=== PATIENT | female | born 1970 | race Native Hawaiian/Other Pacific Islander ===

== ENCOUNTER → 2017-08-02 | Outpatient (CLI) | payer OTHER | LOC: FIMAGING 10:35 | PROVIDERS: ATTEND Podiatrist | DX: M72.2 Plantar fascial fibromatosis (principal) ==

== ENCOUNTER 2018-05-01 12:36 | Inpatient (IN) | payer OTHER ==
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
[2018-05-01 15:42] LABS: PLATELET COUNT 409 10^3/uL (150-400)
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
--- NOTE | 2018-05-01 21:51 | ASMTTCLDSP ---
TLC Discharge Disposition Disposition: Answers: Admit Discharge Concerns/Recommendations: Notes: In consultation with [facility] ED physician, Susan Golden MD and on-call psychiatrist, Dr. Chin MD, both concurred that pt appears to meet 27-65 criteria requiring psychiatric hospitalization as pt appears to be at risk of harm to self due to a mental illness condition. Pt was given the 3N prohibited belongings list while in the ED. For inpatient Sharda Neely MD admission, the following psychiatrist agreed to accept patient for admission to Behavioral Health ([facility] Date Signed: 05/01/2018 09:50 PM Electronically Signed By:Jael Corrigan
[2018-05-02] MEDS ORDERED: LORazepam 0.5 MG TAB PO PRN (00:40)
[2018-05-02] MEDS ORDERED: ACETAMINOPHEN 325 MG TAB PO PRN (00:40)
[2018-05-02] MEDS ORDERED: MAGNESIUM HYDROXIDE 30 ML UDCUP PO PRN (00:40)
[2018-05-02] MEDS ORDERED: MAG HYDROX/AL HYDROX/SIMETH 30 ML UDCUP PO PRN (00:40)
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
[2018-05-02] MEDS ORDERED: SERTRALINE HCL 25 MG TAB PO ONE (09:09)
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
--- NOTE | 2018-05-02 12:16 | ASMTCMCOM ---
CM Note CM Note Notes: Pt and CC completed MTP, signed and placed in pt's chart. Pt. reports having insomnia for the past two years. Pt. stated she wants to speak with a upholstery mechanic, due to concerns with issues with her neighbors. Pt. stated she is thinking about quitting her job, as it is very stressful for her. Pt. stated she "brooklyn want to start over" and discussed moving back to [facility]. Pt. stated she is currently unsure what she will do. Pt. stated she drinks alcohol often, stating "not sure if helping or making it worse". Pt. reports smoking THC to help her sleep, adding it helps her sleep "sometimes". Pt. stated she does have a fear of signing documents. Pt. requested to have a visit from the jareth. Pt. reports having migraines and using THC to help with her migraines. Pt. presents as alert, nervous, guarded, tearful, good eye contact and cooperative. Staff report pt. sleeping 6.5 hours and being medication compliant. Date Signed: 05/02/2018 12:15 PM Electronically Signed By:Britta Luna
--- NOTE | 2018-05-02 14:06 | BCON ---
INTERNAL MEDICINE CONSULTATION DATE OF CONSULTATION: 05/02/2018 REASON FOR REFERRAL: Medical clearance for inpatient behavioral health stay. HISTORY OF PRESENT ILLNESS: This patient was initially evaluated at [facility]. She was referred from there to the emergency department where she received mental health evaluation and was admitted for psychiatric care. She was complaining of increased anxiety, insomnia, and difficulty sleeping. These had been increasing over several months. She had been taking sertraline since July of 2017. With her impaired sleep she had been using increased alcohol. When this did not work she tried cannabis, but ultimately she had worsening of her anxiety, prompting her evaluation. She currently complains of a migraine headache. She says she has been having headaches for about the past 3 years. Initially she tried aspirin, and that did not work and then she has been using ibuprofen. She takes ibuprofen every day. She also gets some headache relief from caffeine in the form of coffee in the morning, but the headache comes back every day. Headache is steady and not pounding. It is in her central forehead. If she does not take any medications it continues indefinitely. She gets sick to her stomach with it. She has no associated vision changes or other neurologic symptoms. PAST MEDICAL HISTORY: 1. Headaches. 2. Psychiatric diagnoses of anxiety and PTSD. PAST SURGICAL HISTORY: She denies any surgeries. MEDICATIONS: She was taking only sertraline. SOCIAL HISTORY: She is . She has 1 child who lives with her ex- , and her daughter goes to college in [facility] [place]. She is a nonsmoker. She uses alcohol and marijuana as discussed above. 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 FAMILY HISTORY: Noncontributory. REVIEW OF SYSTEMS: She reports poor sleep. She reports headache as discussed above. She reports constipation. She says she has a reduced appetite and only eats primarily when she is using alcohol, which is 3-4 days a week. Typically on the weekdays she will only have 1-3 drinks, but she says she drinks more on the weekends. She denies any symptoms of alcohol withdrawal including no shakes or sweats. She reports weight gain of approximately 20 pounds over the past 2 years. She has constipation. She reports some difficulty urinating but does not specify further. She thinks that these are both due to reduced food intake and reduced fluid intake. She denies abdominal pain or vomiting. Otherwise, a 10-point review of systems is negative. PHYSICAL EXAM: VITAL SIGNS: Blood pressure is 130/74, heart rate is 78, respiratory rate is 14, oxygen saturation is 98% on room air. Temperature is 36.8 degrees centigrade. Her weight is 68 kg for a body mass index of 27.4. GENERAL: This is a well-nourished, well-developed, overweight appearing woman, dressed in street clothes, lying in bed, sits up for exam, in no acute distress and cooperative. HEENT: Extraocular movements are intact. Pupils are equal, round, reactive to light. Mucous membranes are moist. Dentition is in good condition. She has a crowded airway, Mallampati class 4. NECK: Supple. HEART : There is a regular rate and rhythm with no murmurs, rubs, or gallops. LUNGS : Clear to auscultation bilaterally. ABDOMEN: Soft, nontender, nondistended with normoactive bowel sounds. EXTREMITIES: There is no cyanosis, clubbing, or edema. NEUROLOGIC: She is alert and oriented x3. Cranial nerves 2-12 are grossly intact. There is no focal weakness. Sensation is intact to light touch. Deep tendon reflexes are 2+ bilaterally at the biceps, patella, and Achilles tendons. Gait, stance, and balance are within normal limits. LABORATORY STUDIES: Drawn yesterday in the emergency department. CBC was overall within normal limits. She had a slightly elevated platelet count of 409. Serum chemistry revealed normal renal function and electrolytes. Glucose was elevated at 127, but this was likely not fasting. Hemoglobin A1c was normal at 5.5. Liver function tests were normal. Lipid panel was benign with a total cholesterol of 182, an LDL of 77, and HDL of 97. TSH was normal at 2.09. Beta hCG was negative for . Toxicology screen in the serum was negative for ethyl alcohol and in the urine was non-negative for marijuana but otherwise negative for substances of abuse. ASSESSMENT/RECOMMENDATIONS: 1. Mental health issues pending further evaluation and management per Psychiatry and the mental health team. 2. Chronic daily headache with migrainous components likely exacerbated by insomnia and possibly with components of alcohol withdrawal and alcohol use further contributing. She might benefit from psychiatric medications which could also be migraine preventives. These would include tricyclic antidepressants and anticonvulsants including valproic acid and topiramate. It is likely that if her sleep issues can be improved through treating her mental health conditions that her headaches will improve. She was informed that chronic daily headache often requires abstinence from analgesics for resolution. If headaches do not remit with better sleep and treatment of her psychiatric conditions, I would advise referral to Neurology for management of chronic daily headache. 3. Weight gain with a normal thyroid. Unclear whether she is getting excess calories out of her alcohol use. Consider avoidance of psychiatric medications that would cause further weight gain. Consider dietary consult and advise encouraging increased physical activity. 4. Insomnia. Given her crowded airway, wonder if there is a component of obstructive sleep apnea as well. Consider referral for outpatient polysomnography. 5. Alcohol use disorder. She reports that she has been trying to cut back. If this does not remit with treatment of her underlying psychiatric conditions she might benefit from specific substance abuse counseling. I see no medical contraindications to this patient's continued stay on the inpatient behavioral health unit or to any psychiatric medications or procedures. Thank you very much for including me in the care of this patient and please do not hesitate to contact me or the hospitalist service should there be need for further medical evaluation. /[id number]/MODL MTDD
[2018-05-02] MEDS: traZODone 50 MG TAB PO SCH (20:05)
[2018-05-03] MEDS ORDERED: SERTRALINE HCL 50 MG TAB PO SCH (09:00)
--- NOTE | 2018-05-03 16:03 | ASMTBHDC ---
Notes Note: Notes: Pt. reports "finally able to sleep", adding she feels rested. Pt. reports eating well and attending one group yesterday. Pt. reports no issues with her current medications. Pt. stated she was hoping to discharge yesterday. Pt. requested to be discharged by the end of today. Pt. denied SI, HI, AVH and paranoia. Pt. reports "feeling drained", adding she feels this physically, stating "fear or sadness in my heard. Heavy feeling". Pt. presents as alert, nervous, guarded, fair eye contact, and cooperative. Staff report pt. sleeping 13.5 hours and being medication compliant. Date Signed: 05/03/2018 04:02 PM Electronically Signed By:Britta Luna
--- NOTE | 2018-05-03 18:18 | SOAPPROG ---
SOAP Progress Note Assessment/Plan: Assessment: 47 yo [place]ian woman with h/o depression, alcohol and cannabis use disorder who presented to ED with c/o anxiety, paranoia and difficulty sleeping. She was eventually placed on M1 b/c she told ED provider she didn't feel safe to go home. Plan: 05/03/18 18:17 1. Patient has been taking Zoloft 100mg since July 2017. Will increase her dose to what she has been taking at home. Will also recommend titrating dose to 150mg with goal of reaching max dose of 200mg if needed. Further titration will need to be done by her outpatient psych MD. 2. Patient took trazodone last night and says she was "finally able to sleep." She slept 13.5 hrs last night and this AM. 3. Patient is worried about a lot of things going on in the world right now, particularly in the [place] She says she would like to return to [facility], but her daughter is in college in [place]. 4. Recommend patient stay until Saturday in order to make f/u appts for her. Her hold expires tomorrow. Subjective: Patient states she feels "sad in my heart" for lots of reasons. She is sad that her daughter left home to go to college in [place]. She is also worried about the political situation in the [place] which she doesn't feel is favorable to immigrants. She reports stress at work. MD suggested she consider individual and /or group therapy in addition to medications. She denied any current SI/HI. Objective: Vital Signs Temp Pulse Resp BP Pulse Ox 37 C 87 14 112/62 94 05/03/18 06:00 05/03/18 06:00 05/03/18 06:00 05/03/18 06:00 05/03/18 06:00 MSE: Affect: Sad Mood: "Sad" TP: Linear TC: Denies any SI/HI Insight/ Judgment: Fair - Time Spent With Patient Time Spent With Patient: 15" - Pending Discharge Pending Discharge Within 24 Hours: No Pending Discharge Within 48 Hours: Yes Pending Discharge Date: 05/05/18 (Likely to d/c on Saturday) Pending Discharge Time: 11:00 ICD10 Worksheet Patient Problems: Problems Problem Status Onset Alcohol use disorder, severe, dependence Acute Cannabis use disorder, severe, dependence Acute Generalized anxiety disorder Chronic Post traumatic stress disorder Chronic
[2018-05-03] MEDS: traZODone 50 MG TAB PO SCH (21:17)
[2018-05-04] MEDS ORDERED: SERTRALINE HCL 100 MG TAB PO SCH ×2 (09:00→16:02)
--- NOTE | 2018-05-04 15:55 | SOAPPROG ---
SOAP Progress Note Assessment/Plan: Assessment: 47 yo [place] woman with h/o depression, alcohol and cannabis use disorder who presented to ED with c/o anxiety, paranoia and difficulty sleeping. She was eventually placed on M1 b/c she told ED provider she didn't feel safe to go home. Plan: 05/03/18 18:17 1. Patient has been taking Zoloft 100mg since July 2017. Will increase her dose to what she has been taking at home. Will also recommend titrating dose to 150mg with goal of reaching max dose of 200mg if needed. Further titration will need to be done by her outpatient psych MD. 2. Patient took trazodone last night and says she was "finally able to sleep." She slept 13.5 hrs last night and this AM. 3. Patient is worried about a lot of things going on in the world right now, particularly in the [place] She says she would like to return to [facility], but her daughter is in college in [place]. 4. Recommend patient stay until Saturday in order to make f/u appts for her. Her hold expires tomorrow. PLAN: 05/04/18 15:51 1. Patient agrees to increase Zoloft to 150mg starting tomorrow AM. 2. Patient willing to sign in voluntary when hold expires. She would like to get an intake appointment with P so she can start working with a therapist. She has done therapy when she lived in [facility], [place] and [place], but has not seen a counselor in > 1 year. 3. Patient admits to eating and sleeping "better" in hospital. 4. Likely to d/c tomorrow after f/u plan finalized. Subjective: Met with patient in her room with CC present. Patient sitting up in bed. She says she has been taking 100mg of Zoloft prescribed by her PCP. She reports PCP increased dose from 50mg to 100mg about 6 weeks or more ago. Patient has not felt "safe" at home b/c of the "political situation." Patient is worried that her neighbors don't like her b/c she is an immigrant from [place]. Patient reports there are "a lot of new people" in her neighborhood b/c 2 homes have become rental properties through [employer], and the home next to hers was recently sold. Her 15 yo son lives with her every other week and stays with his FOC the rest of the time. Her daughter just left for college. Patient says she feels "lonely," and describes herself as a "recluse." She says therapy has been "helpful" for her in the past, but she hasn't seen a therapist in over a year. She is willing to f/u with P and start doing 1:1 and possibly group therapy after d/c. MD encouraged patient to remain in hospital after her hold expires to make sure her f/u appointments are arranged before she leaves. She also consented to increase her Zoloft to 150mg and MD explained she needs to be under observation in case of any adverse effects from the med change. Patient agreed with plan. Objective: Vital Signs Temp Pulse Resp BP Pulse Ox 36.8 C 79 16 107/56 L 94 05/04/18 06:00 05/04/18 06:00 05/04/18 06:00 05/04/18 06:00 05/04/18 06:00 MSE: Affect: Flat Mood: "Better" TP: Linear, goal-directed TC: Denies any SI/ HI, no paranoid delusions Perception: Denies any AH/VH Insight/Judgment: Fair - Time Spent With Patient Time Spent With Patient: 25" - Pending Discharge Pending Discharge Within 24 Hours: Yes Pending Discharge Date: 05/05/18 (Possible d/c on Saturday or Saturday) Pending Discharge Time: 11:00 ICD10 Worksheet Patient Problems: Problems Problem Status Onset Alcohol use disorder, severe, dependence Acute Cannabis use disorder, severe, dependence Acute Generalized anxiety disorder Chronic Post traumatic stress disorder Chronic
--- NOTE | 2018-05-04 15:58 | ASMTCMCOM ---
CM Note CM Note Notes: Pt. reports feelings safer in the hospital than at home. Pt. stated she feels unsafe because of the "political environment" and "tramua from political thing and racial issues". Pt. stated there are several Airbnbs near her home which means there are a lot of strangers coming and going. Pt. stated she will be visiting [place] in June. Pt. stated this is the first time she has lived alone, adding her some lives with her one week and with his father the next week. Pt. stated "I'm a reclus". Pt. stated she works more often due to difficulties participating in social activities Pt. stated she found therapy helpful in the past. Pt. stated her last therapist did EMDR with her. Pt. stated her medication was increase before the holidays. Pt. denied SI, HI, and AVH. Pt. reports some paranoia, about "nothing specifice", adding when she goes out, she feels people/strangers are talking about her and looking at her. Pt. agreed to stay through Saturday to allow CC to schedule follow up appointments. Pt. presents as alert, little nervous, polite, good eye contact, in bed, and cooperative. Staff report pt. sleeping 8.5 hours and being medication compliant. Date Signed: 05/04/2018 03:58 PM Electronically Signed By:Britta Luna
[2018-05-04] MEDS: traZODone 50 MG TAB PO SCH (20:29)
[2018-05-05 06:46] VITALS: BP 105/53
--- NOTE | 2018-05-05 09:33 | BDS ---
REASON FOR ADMISSION: From the ED note dated 05/01/2018, the patient presented to the emergency room, feeling anxious, paranoid, reported difficulty sleeping. The patient reported a history of PTSD. The patient reported she has recently been having significant anxiety and insomnia over the past several months. Patient stated she felt hopeless about her future. The patient denied active suicidal ideation, but reported sometimes she feels she will never feel at peace. Patient reported, during the [facility] evaluation, she has had problems sleeping and eating, going sometimes days without eating and sleeping, and reported problems with hallucinations. Patient was admitted involuntarily on an M1 hold due to being a danger to herself and being gravely disabled due to a mental illness. Patient was admitted for safety, crisis stabilization, and medication management. ADMITTING DIAGNOSES: 1. Generalized anxiety disorder. 2. Post-traumatic stress disorder. 3. Cannabis use disorder, severe. 4. Alcohol use disorder, severe. ADMISSION PHYSICAL EXAM: The patient was seen for an Internal Medicine consultation on 05/02/2018 for medical clearance for inpatient psychiatric hospitalization and treatment. The patient was medically cleared for inpatient psychiatric hospitalization and treatment. For further details, please refer to consultation note dated 05/02/2018. MAJOR PROCEDURES OR TESTS: None. HOSPITAL COURSE: The most prominent symptoms and behaviors while the patient was here were patient isolating to her room, avoiding social interaction. Patient reported severe anxiety, inability to fall asleep or stay asleep. Treatment modalities utilized were milieu and group therapy. Trazodone 50 mg p.o. q.h.s. was started to target mood and insomnia symptoms, was tolerated with no report of side effects and with a good response. The patient reported she was able to get some sleep during her hospitalization and reported feeling more rested at time of discharge. Sertraline was started to target mood symptoms, was titrated to 150 mg p.o. daily at time of discharge, was tolerated with no report of side effects and with good response. Patient has improved considerably, with no signs of psychiatric symptoms and no psychiatric symptoms expressed at time of discharge. Patient reports she has improved since admission, states to be in stable condition, feels safe to discharge, and she contracts for safety. Patient's response to treatment was good. There were no adverse or unexpected results of treatment. The patient was safe throughout her stay, active in treatment, engaged in groups, and was appropriate with staff and other patients. The patient met with the treatment team prior to discharge to assess readiness to discharge and review discharge plan. The treatment team consensus is the patient is in stable condition, has a safe discharge plan, and is ready to discharge today. CONDITION ON DISCHARGE: Patient is in stable condition and is no longer a danger to self or others, and is not gravely disabled due to mental illness. Patient is no longer in need of inpatient level of care, and can be safely and effectively treated within the community. The patients level of risk at time of discharge is low. MSE: The patient is casually dressed and with good hygiene , and looks stated age. Patient is sitting, posture is upright, and position is relaxed. Patient appears awake, alert, and responds appropriately and reasonably during interview. Patient is engaged, relates well to interviewer, and emotional facial expression is appropriate to situation and changes appropriately with topic. Patient is cooperative, makes comfortable eye contact , and movements are voluntary, deliberate, coordinated, and smooth and even with no inappropriate movements. Patient makes laryngeal sounds effortlessly and shares conversation appropriately; pace of conversation is appropriate, and stream of talking is fluent; articulation is clear and understandable; word choice is effortless and appropriate for education level; completes sentences, occasionally pausing to think; rate and volume are appropriate for interview and setting. Patient reports mood as euthymic. Patients affect is stable with full variable range, congruent with mood, and appropriate to speech and circumstances. Patient has linear and logical thinking, with no loose associations, tangential thought, thought blocking, concrete thinking, or any other signs of formal thought disorder. Patient denies suicidal and homicidal ideation, and denies hallucinations and delusions. Patient appears to be a reliable historian with sound judgement and good insight into current condition. Patient has no apparent dysfunction in recent or remote memory noted , and no evidence of gross cognitive dysfunction noted at any point during the interview. DISCHARGE DIAGNOSES: 1. Generalized anxiety disorder. 2. Post-traumatic stress disorder. 3. Cannabis use disorder, severe. 4. Alcohol use disorder, severe. CURRENT MEDICATIONS: After reviewing options, risks, and benefits with the patient, the patient agrees to continue: 1. Trazodone 50 mg p.o. q.h.s. 2. Sertraline 150 mg p.o. daily. Patient requests prescriptions for these medications at time of discharge. Prescriptions for 30 days are provided. Prescriptions are reviewed with the patient at time of discharge to ensure accuracy and patient understanding. DISPOSITION: Patient left hospital independently and voluntarily and plans to return home. FOLLOWUP: flow coordinator reports the appropriate outpatient follow-up services have been established and outpatient appointments have been scheduled. The patient received written instructions with times and dates of outpatient follow-up appointments. The following follow-up recommendations were provided to the patient at discharge: Continue psychotropic medications as prescribed and attend appointments as scheduled. Report any side effects to a psychiatric outpatient provider, a primary care provider, or other health resident care technician. Address any questions or problems concerning the psychotropic medications with a psychiatric outpatient provider, a primary care provider, or other health resident care technician. Contact [facility], [facility] or [facility], or go to the nearest emergency room, if you are ever a danger to yourself/others, or unable to care for yourself. As soon as possible, establish a routine medication management treatment with a psychiatric provider, establish routine therapy appointments, and follow-up with a primary care provider. SUBSTANCE ABUSE BRIEF INTERVENTION: Brief intervention regarding the risks of alcohol and cannabis abuse is provided to patient with goal to reduce the risk of harm that could result from the continued use of alcohol and cannabis, with the general aim to investigate the problem, raise awareness of problem, develop a solution with the patient, recommend a specific change or activity, and motivate the patient toward change. Assess substance abuse behavior and give supportive advice about harm reduction, recommend a reduction in hazardous/at- risk consumption patterns, and facilitate referrals for additional specialized treatment with companion caregiver. Intermediate goal is for the patient to quit/ decrease frequency of use/attend a NA/AA meeting. Intervention focus on intermediate goals to allow for more immediate success in the treatment process to keep the patient motivated. Review following with patient: Cannabis use risks: Short-term use: impaired short-term memory, impaired motor coordination, altered judgement, in high doses paranoia and psychosis. Long-term use addiction, diminished life satisfaction and achievement, symptoms of chronic bronchitis, and increased risk of chronic psychosis disorders if predisposition to such disorders. In withdrawal anger, aggression irritability, anxiety and nervousness, decreased appetite or weight loss, restlessness, and sleep difficulties with strange dreams. Alcohol/Binge Drinking risks: short-term: injuries, violence, alcohol poisoning, risky sexual behaviors. Long-term: high blood pressure, stroke, liver disease, digestive problems, cancer, learning and memory problems, depression and anxiety, social problems, and alcohol dependence. OUTPATIENT SUBSTANCE ABUSE TREATMENT: Patient referred to outpatient provider and treatment for continued treatment related to substance abuse. LEGAL COURSE: The patient was admitted on an M1 hold for inpatient psychiatric hospitalization. The patient became voluntary during her stay. Patient discharged today independently and voluntarily. ATTITUDE AT TIME OF DISCHARGE: The patients attitude was positive at time of discharge, and patient reports looking forward to discharging today. The patient reports she feels safe to discharge, is no longer a danger to herself or others, is in stable condition, and contracts for safety. Patient states she will continue medications as prescribed, and establish medication management treatment with an outpatient provider after discharge. Patient reports she understands the information that has been provided to her, and she understands, accepts, and agrees to psychotropic medications. Patient describes internal protective factors as the coping skills she has learned while hospitalized here, and she plans to continue to practice these coping skills after discharge. LABS AND STUDIES: There were no pending labs or studies at time of discharge. ADVANCE DIRECTIVES: There were no advance directives on file, and the patient was full code during this hospitalization. The following psychotropic medication treatment informed consent and recommendations were provided to the patient at time of discharge. Patient reports she understands, accepts, and agrees to the information that has been provided. PSYCHOTROPIC MEDICATION TREATMENT INFORMED CONSENT and RECOMMENDATIONS: Review nature of condition, diagnosis, and prognosis. Review nature and purpose of psychotropic medication treatment. Review type of psychotropic medications being prescribed. Review risk and benefits of psychotropic medication treatment. Review probable length of time will need to take medications. Review risk and benefits of not undergoing psychotropic medication treatment. Review alternative treatments to psychotropic medications. Review psychotropic medications contraindications, side effects, and importance of reporting any side effects to a psychiatric provider, primary care provider, or other health resident care technician. Review importance of her asking a psychiatric provider or primary care provider any questions or problems concerning the psychotropic medications. Review importance of reporting to a psychiatric provider, primary care provider, or other health resident care technician if she plans to or becomes . Review safety plan and the importance to contact [facility] or 911 , or go to the nearest emergency room, if ever a danger to yourself/others, or unable to care for yourself. Recommend upon discharge to establish routine medication management treatment with a psychiatric provider, establish routine therapy appointments, and follow-up with a primary care provider. Verify patient understands, accepts, and agrees to the information that has been provided. /[id number]/MODL MTDD
--- NOTE | 2018-05-05 13:58 | ASMTBHDC ---
Notes Note: Notes: Pt. reports "feeling so much better". Pt. stated she "slept pretty much all night". Pt. reports no issues with her current medications. Pt. stated her medications were increased today. Pt. stated she is concerned about dependence to her sleep medication, adding she did speak with the doctor about this. Pt. stated she is discharging today, adding her exHOC can pick her up at 4pm. Pt. denied SI, HI, and AVH. Pt. stated "not yet" when asked about feelings of paranoia, adding "don't think that will go away". Pt attended the treatment team meeting this morning, and stated "it [paranoia] doesn't consume me". Pt. presents as alert, brighter, calm, smiling, good eye contact, groomed, and cooperative. Staff report pt. sleeping 8.5 hours and being medication compliant. Date Signed: 05/05/2018 01:57 PM Electronically Signed By:Britta Luna
== END 2018-05-05 16:25 | disposition home or self-care (01) | DRG 880 ==
LOC: CED 12:36 → BBEH 23:10
PROVIDERS: ADMIT Psychiatry & Neurology Behavioral Neurology & Neuropsychiatry; ATTEND Psychiatry & Neurology Behavioral Neurology & Neuropsychiatry
DX: F41.1 Generalized anxiety disorder (principal); F43.12 Post-traumatic stress disorder, chronic; F10.280 Alcohol dependence with alcohol-induced anxiety disorder; F12.280 Cannabis dependence with cannabis-induced anxiety disorder; F10.282 Alcohol dependence with alcohol-induced sleep disorder; F51.05 Insomnia due to other mental disorder; Z62.810 Personal history of physical and sexual abuse in childhood
CPT/HCPCS: 80307-PO; G0480